=== PATIENT | male | born 1970 | race Caucasian/White ===

== ENCOUNTER 2016-04-13 09:38 | Emergency (ER) | payer BC ==
[2016-04-13 10:00] VITALS: BP 158/115
--- NOTE | 2016-04-13 10:25 | UC ---
Ear Complaint HPI - HPI Summary HPI Summary: complaint of left ear feeling "clogged up" had left ear pain intermittent for several weeks which has resolved can't hear well with left ear recent URI 3 weeks ago which resolved not taking any medications for symptoms - History of Current Complaint Chief Complaint: UCEar Stated Complaint: EAR COMPLAINT Time Seen by Provider: 04/13/16 10:19 Hx Obtained From: Patient - Allergies/Home Medications Allergies/Adverse Reactions: Allergies Allergy/AdvReac Type Severity Reaction Status Date / Time Lactose Intolerance (GI) Allergy GI Upset Verified 03/04/16 15:55 Home Medications: Home Medications Phenylephrine HCl (Oral) [Nasal Decongestant] 2 tab 04/13/16 [History] PMH/Surg Hx/FS Hx/Imm Hx Previously Healthy: Yes - Surgical History Surgical History: Yes Surgery Procedure, Year, and Place: right leg fx - pins in place - Family History Known Family History: Positive: Hypertension Negative: Cardiac Disease, Diabetes - Social History Occupation: Employed Full-time Lives: With Family Alcohol Use: Occasionally Substance Use Type: None Smoking Status (MU): Heavy Every Day Tobacco Smoker Type: Cigarettes Amount Used/How Often: 1 PPD Cessation Counseling: Patient Advised to Stop - Immunization History Most Recent Tetanus Shot: 07/08/13 Review of Systems Constitutional: Negative Skin: Negative Eyes: Negative ENT: Ear Ache Respiratory: Negative Cardiovascular: Negative Gastrointestinal: Negative Genitourinary: Negative Motor: Negative Neurovascular: Negative Musculoskeletal: Negative Neurological: Negative Psychological: Negative All Other Systems Reviewed And Are Negative: Yes Physical Exam Triage Information Reviewed: Yes Appearance: No Pain Distress, Well-Nourished Vital Signs: Initial Vital Signs Temp 98.6 F 04/13/16 09:58 Pulse 105 04/13/16 09:58 Resp 18 04/13/16 09:58 BP 158/115 04/13/16 09:58 Pulse Ox 95 04/13/16 09:58 Vital Signs Reviewed: Yes Eyes: Positive: Conjunctiva Clear ENT: Positive: Pharynx normal, TM bulging. Negative: Nasal congestion, TM red, Tonsillar swelling, Tonsillar exudate Neck: Positive: No Lymphadenopathy Respiratory: Positive: Lungs clear, Normal breath sounds, No respiratory distress Cardiovascular: Positive: No Murmur, Pulses Normal, Tachycardia Musculoskeletal: Positive: No Edema Neurological: Positive: Alert Psychological Exam: Normal Skin Exam: Normal Ear Complaint Course/Dx - Differential Dx/Diagnosis Differential Diagnosis/HQI/PQRI: Cerumen Impaction, Otitis Externa, Otitis Media , Other - eustachion tube dysfunction Provider Diagnoses: eustachion tibe dysfunction, elevated blood pressure Discharge - Discharge Plan Condition: Stable Disposition: HOME Prescriptions: Fluticasone NASAL SPRAY 50MCG* [Flonase NASAL SPRAY 50MCG*] 2 spray BOTH NARES DAILY #1 btl Patient Education Materials: Hypertension (ED), Eustachian Tube Dysfunction ( GEN) Referrals: No Primary Care Phys,NOPCP [Primary Care Provider] - [facility] [place] [facility] [Outside] Additional Instructions: Your blood pressure is elevated - please call the physician referral service to find a primary care provider and have your blood pressure evaluated. Start flonase as directed Increase fluids and rest Take acetaminophen or ibuprofen for fever or pain Please review your discharge instructions. If your symptoms do not improve please call your primary care provider or return to urgent care
== END 2016-04-13 10:40 | disposition home or self-care (01) ==
LOC: UCEAST 09:38
DX: H69.92 Unspecified Eustachian tube disorder, left ear (principal); R03.0 Elevated blood-pressure reading, without diagnosis of hypertension; F17.210 Nicotine dependence, cigarettes, uncomplicated
CPT/HCPCS: 99212; G0463

== ENCOUNTER 2016-08-24 16:53 | Emergency (ER) | payer BC ==
[2016-08-24 17:14] VITALS: BP 150/103
--- NOTE | 2016-08-24 18:47 | UC ---
Throat Pain/Nasal Daniel HPI - HPI Summary HPI Summary: 45 y/o male presents to the urgent care c/o of LF neck pain below the ear with sore throat since yesterday. Pt thinks is a lymph node that is painful at touch. Pt reports he had LEft ear pain about 2 months ago amd was Rx Flonase, symptoms resolved, but now he feel are returning. Pt denies fever, OSEGUERA, ear pain , SOB, chest pain, URI, N/V/D. - History of Current Complaint Chief Complaint: UCGeneralIllness Stated Complaint: NECK,JAW PAIN Time Seen by Provider: 08/24/16 18:34 Hx Obtained From: Patient Onset/Duration: Sudden Onset, Lasting Hours, Still Present Severity: Mild Pain Intensity: 3 Pain Scale Used: 0-10 Numeric Associated Signs & Symptoms: Positive: Dysphagia. Negative: Hoarseness, Sinus Discomfort, Nasal Discharge, Fever, Vomiting, Rash Related History: Seasonal Allergies - Epiglottits Risk Factors Epiglottis Risk Factors: Negative - Allergies/Home Medications Allergies/Adverse Reactions: Allergies Allergy/AdvReac Type Severity Reaction Status Date / Time Lactose Intolerance (GI) Allergy GI Upset Verified 03/04/16 15:55 PMH/Surg Hx/FS Hx/Imm Hx Previously Healthy: Yes Cardiovascular History: Hypertension - Surgical History Surgical History: Yes Surgery Procedure, Year, and Place: right leg fx - pins in place - Family History Known Family History: Positive: Cardiac Disease, Hypertension Negative: Diabetes - Social History Occupation: Employed Full-time Lives: With Family Alcohol Use: Occasionally Substance Use Type: None Smoking Status (MU): Heavy Every Day Tobacco Smoker Type: Cigarettes Amount Used/How Often: 1 PPD - Immunization History Most Recent Tetanus Shot: 07/08/13 Review of Systems Constitutional: Negative Skin: Negative Eyes: Negative ENT: Sore Throat, Other - LF lymph node pain Respiratory: Negative Cardiovascular: Negative Gastrointestinal: Negative Genitourinary: Negative Motor: Negative Neurovascular: Negative Musculoskeletal: Negative Neurological: Negative Psychological: Negative All Other Systems Reviewed And Are Negative: Yes Physical Exam Triage Information Reviewed: Yes Vital Signs: Initial Vital Signs Temp 98.5 F 08/24/16 17:10 Pulse 93 08/24/16 17:10 Resp 18 08/24/16 17:10 BP 150/103 08/24/16 17:10 Pulse Ox 99 08/24/16 17:10 - Additional Comments Physical examination: Vitral signs reviewed General: awake and alert, not toxic appearing. Skin: [place], warm and dry, no evidence of atopic dermatitis, psoriasis, seborrhea. HEENT: -Head: atraumatic, nontender; no scalp dermatitis. -Eyes: sclera and conjunctiva clear, PERRLA, EOMI -Ears: no pre- or postauricular lymphadenopathy or erythema; canals are clear, no erythema, edema, exudates. No cerumen impaction. RT TM normal w/out bulging or retraction. Good light reflex. Left TM dullwith mild erythema, no light reflex, No fluid level, vesicles, or bullae. No perforation. -Nose/Face: no rhinorrhea, congestion; no frontal or maxillary sinus tenderness to palpation. -Mouth/Throat: Mucous membrane moist, posterior pharynx with erythema and no exudate exudates in the left side. B/L tonsils with mild erythema and swollen. No exudate. Neck: supple, FROM, mild tendernes on palpation over left cervical lymphoadenopathy, no meningismus. Chest: CTA Abd: soft, Bowel sounds active, Nontender. Back: no spinal or CVAT Neuro: A&O x4, GCS 15, no focal neuro deficits, normal behavior for age. Throat Pain/Nasal Course/Dx - Course Course Of Treatment: Sore throat with lymph node pain x 2 days: Hx obtained. PE abnormal finding:-Ears: no pre- or postauricular lymphadenopathy or erythema ; canals are clear, no erythema, edema, exudates. No cerumen impaction. RT TM normal w/out bulging or retraction. Good light reflex. Left TM dull with mild erythema, no light reflex, No fluid level, vesicles, or bullae. No perforation. Posite left cervical lymphadenopathy. Rapid strep ordered, result: negative. Most likely Acute left otitis media with cervical lymphadenopathy. Pt w/ Hx of ear pain. Pt Rx Augmentin 875/125mg PO BID x 10 days. and Ibuprofen 800mgPO prn to alleviate symptoms. Pt instructed on medications and advised to return to urgent care of f/u with his PCO if symptoms do not improve or worsen. Pt understooda and agreed. - Differential Dx/Diagnosis Differential Diagnosis/HQI/PQRI: Laryngitis, Otitis Media, Peritonsillar Abscess , Pharyngitis, URI Provider Diagnoses: Acute Left otitis media, acute pharyngitis Discharge - Discharge Plan Condition: Stable Disposition: HOME Prescriptions: Amoxicillin/Clavulanate TAB* [Augmentin TAB 875*] 875 mg PO BID #20 tab Ibuprofen TAB* [Motrin TAB* 800 MG] 800 mg PO Q6H #20 tab Patient Education Materials: Otitis Media (ED), Lymphangitis (ED) Referrals: [facility] [place] [facility] [Outside] No Primary Care Phys,NOPCP [Primary Care Provider] - Additional Instructions: Please take medications as instructed and finish the full course of treatment to avoid recurrent infection. If you do not improve or if symptoms worsen after the course of antibiotics, you should either follow up with your PCP or return to the urgent care for further evaluation and treatment.
== END 2016-08-24 19:40 | disposition home or self-care (01) ==
LOC: UCEAST 16:53
DX: H66.92 Otitis media, unspecified, left ear (principal); J02.9 Acute pharyngitis, unspecified; F17.210 Nicotine dependence, cigarettes, uncomplicated; I10 Essential (primary) hypertension
CPT/HCPCS: 87651; 99212; G0463

== ENCOUNTER 2016-11-11 13:03 | Emergency (ER) | payer BC ==
[2016-11-11 13:52] VITALS: BP 145/96
--- NOTE | 2016-11-11 16:02 | UC ---
Yasemin Steele SooYoung, scribed for Iam Main MD on 11/11/16 at 1445 . Allergic Reaction HPI - HPI Summary HPI Summary: A 46 y/o M presents to [facility] [place] with c/o allergic reaction after being stung by a wasp on his R wrist yesterday. This AM, he noticed swelling of his RUE from hand to bicep. RUE is also erythematous, pruritic, and warm to touch. Denies SOB , throat tightness. He used cold water on the sting yesterday, but it didn't alleviate sx. He states being stung 14x two weeks ago. R-hand dominant. - History of Current Complaint Chief Complaint: UCAllergicReaction Stated Complaint: BEE STING Hx Obtained From: Patient Onset/Duration: Sudden Onset, Lasting Hours - onset yesterday, Still Present Severity Initially: Moderate Severity Currently: Mild Pain Intensity: 2 Pain Scale Used: 0-10 Numeric Location: Discrete @ - R wrist, RUE Character: Swelling, Pruritus Associated Signs And Symptoms: Negative: Difficulty Breathing - neg: SOB, Throat Tightening - Allergies/Home Medications Allergies/Adverse Reactions: Allergies Allergy/AdvReac Type Severity Reaction Status Date / Time Lactose Intolerance (GI) Allergy GI Upset Verified 11/11/16 13:47 PMH/Surg Hx/FS Hx/Imm Hx Previously Healthy: Yes Cardiovascular History: Other Other Cardiovascular History: neg CHF, HTN. Respiratory History: Other Other Respiratory History: neg: asthma. - Surgical History Surgical History: Yes Surgery Procedure, Year, and Place: right leg fx - pins in place - Family History Known Family History: Positive: Cardiac Disease, Hypertension Negative: Diabetes - Social History Occupation: Employed Full-time Lives: Alone Alcohol Use: Occasionally Substance Use Type: None Smoking Status (MU): Heavy Every Day Tobacco Smoker Type: Cigarettes Amount Used/How Often: 1 PPD Length of Time of Smoking/Using Tobacco: 15+ YEARS - Immunization History Most Recent Tetanus Shot: 07/08/13 Review of Systems Skin: Other - pos: swelling, pruritus, erythema to RUE ENT: Other - neg: throat tightening Respiratory: Negative All Other Systems Reviewed And Are Negative: Yes Physical Exam Triage Information Reviewed: Yes Vital Signs: Initial Vital Signs Temp 97.9 F 11/11/16 13:48 Pulse 115 11/11/16 13:48 Resp 16 11/11/16 13:48 BP 145/96 11/11/16 13:48 Pulse Ox 99 11/11/16 13:48 Vital Signs Reviewed: Yes - Additional Comments The patient is well-nourished in no acute distress and in no acute pain. The skin is warm and dry and skin color reflects adequate perfusion. HEENT: The head is normocephalic and atraumatic. The pupils are equal and reactive. The conjunctivae are clear and without drainage. Nares are patent and without drainage. Mouth reveals moist mucous membranes and the throat is without erythema and exudate. The external ears are intact. Neck is supple with full range of motion and non-tender. There are no carotid bruits. There is no neck vein distension. Respiratory: Chest is non-tender. Lungs are clear to auscultation and breath sounds are symmetrical and equal. Cardiovascular: Hear is regular rate and rhythm. There is no murmur or rub auscultated. There is no peripheral edema and pulses are symmetrical and equal. Abdomen: The abdomen is soft and non-tender. There are normal bowel sounds heard in all four quadrants and there is no organomegaly palpated. Musculoskeletal: There is no back pain noted. Extremities are non-tender with full range of motion. There is good capillary refill. There is no calf tenderness elicited. Localized RUE erythema from wrist to mid-humerous mostly on volar side. There is swelling of elbow, hand and thumb. Area is hot and warm to touch. FROM distally. No lymphadenopathy noted, no adenopathy under the axilla. Neurological: Patient is alert and oriented to person, place and time. The patient has symmetrical motor strength in all four extremities. Cranial nerves are grossly intact. Deep tendon reflexes are symmetrical and equal in all four extremities. Psychiatric: The patient has an appropriate affect and does not exhibit any anxiety or depression. Allergic Reaction Course/Dx - Course Course Of Treatment: Medications reviewed this visit. Hypertensive BP reading (> =140/90); patient referred to PCP within 1 day-4 weeks for follow-up. - Differential Dx/Diagnosis Differential Diagnosis/HQI/PQRI: Local Allergic Reaction Provider Diagnoses: 1. Localized allergic reaction to bee sting right upper extremity. 2. Elevated blood pressure without diagnosis of hypertension Discharge - Discharge Plan Condition: Stable Disposition: HOME Prescriptions: Famotidine TAB 40 MG(NF) [Pepcid TAB 40 MG(NF)] 40 mg PO DAILY #20 tab diPHENhydraMINE PO* [Benadryl PO 50 MG CAP*] 50 mg PO Q6H PRN #30 cap PRN Reason: itching predniSONE TAB* [Deltasone TAB*] 10 mg PO DAILY #38 tab Patient Education Materials: Famotidine (By mouth), Prednisone (By mouth), Diphenhydramine (By mouth), General Allergic Reaction (ED) Referrals: No Primary Care Phys,NOPCP [Primary Care Provider] - [facility] [place] [facility] [Outside] - 3 Days (Also, follow-up in 1 day to 4 weeks for further blood pressure evaluation. ) Additional Instructions: Continue using ice as needed. Take the medications as prescribed. Follow up with your primary care provider in the next 2 days. Your blood pressure reading today was 145/96, which is HYPERTENSIVE. Establish with a new primary care provider and follow-up within 4 weeks for blood pressure readings and further evaluation. If you cant find a provider, try to check your blood pressure on your own and see if its above 120/80. If so, follow up for further evaluation and treatment. The documentation as recorded by the Yasemin sanchez SooYoung accurately reflects the service I personally performed and the decisions made by me, Iam Main MD.
== END 2016-11-11 14:55 | disposition home or self-care (01) ==
LOC: UCEAST 13:03
DX: T63.441A Toxic effect of venom of bees, accidental (unintentional), initial encounter (principal); M79.89 Other specified soft tissue disorders; Y92.9 Unspecified place or not applicable; R03.0 Elevated blood-pressure reading, without diagnosis of hypertension; F17.210 Nicotine dependence, cigarettes, uncomplicated
CPT/HCPCS: 99212; G0463

== ENCOUNTER 2017-07-04 07:09 | Emergency (ER) | payer BC ==
[2017-07-04 07:22] VITALS: BP 151/96
--- NOTE | 2017-07-04 07:47 | UC ---
Skin Complaint HPI - HPI Summary HPI Summary: ONSET OF MILD EDEMA OF THE MID FACE YESTERDAY. PT STATES HE HAD BEEN SCRATCING A A PIMPLE UNDER HIS NOSE FOR A COUPLE OF DAYS AND NOTICED THE SWELLING YESTERDAY AFTERNOON. THEN HE WENT OUT AND ATE SEAFOOD FOR DINNER - STATES HE HAS A POSSIBLE SHELLFISH ALLERGY - AND THE SWELLING WORSENED. NO RESPIRATORY INVOLVEMENT, FEVER, TONGUE/LIP SWELLING. - History of Current Complaint Chief Complaint: UCSkin Time Seen by Provider: 07/04/17 07:25 Stated Complaint: SWOLLEN FACE Hx Obtained From: Patient Onset/Duration: Gradual Onset, Lasting Days, Still Present Timing: Constant Onset Severity: Moderate Current Severity: Moderate Pain Intensity: 0 Pain Scale Used: 0-10 Numeric Location: Face Character: Swelling, Pain, Redness Aggravating Factor(s): Touch Alleviating Factor(s): Nothing Associated Signs & Symptoms: Positive: Tenderness. Negative: Nausea, Fever, Throat Tightening Related History: Possible Reaction to: Food - Allergy/Home Medications Allergies/Adverse Reactions: Allergies Allergy/AdvReac Type Severity Reaction Status Date / Time lactose intolerant Allergy GI Upset Uncoded 07/04/17 07:24 Home Medications: Home Medications Pseudoephedrine HCL ER TAB* [Sudafed 12 Hour*] 120 mg PO BID PRN 07/04/17 [ History Confirmed 07/04/17] Review of Systems Constitutional: Negative Skin: Other - FACIAL EDEMA ENT: Negative Respiratory: Negative Cardiovascular: Negative Gastrointestinal: Negative All Other Systems Reviewed And Are Negative: Yes PMH/Surg Hx/FS Hx/Imm Hx Cardiovascular History: Hypertension - Surgical History Surgical History: Yes Surgery Procedure, Year, and Place: right leg fx - pins in place - Family History Known Family History: Positive: Cardiac Disease, Hypertension Negative: Diabetes - Social History Alcohol Use: Occasionally Substance Use Type: None Smoking Status (MU): Heavy Every Day Tobacco Smoker Type: Cigarettes Amount Used/How Often: 1/2 PPD Length of Time of Smoking/Using Tobacco: 15+ YEARS - Immunization History Most Recent Tetanus Shot: 07/08/13 Physical Exam Triage Information Reviewed: Yes Appearance: Well-Appearing, No Pain Distress, Well-Nourished Vital Signs: Initial Vital Signs Temp 98.8 F 07/04/17 07:17 Pulse 96 07/04/17 07:17 Resp 16 07/04/17 07:17 BP 151/96 07/04/17 07:17 Pulse Ox 100 07/04/17 07:17 Vital Signs Reviewed: Yes Eyes: Positive: Conjunctiva Clear ENT: Positive: Hearing grossly normal, Pharynx normal, TMs normal - FLUID BEHIND RIGHT TM Neck: Positive: Supple, Nontender, No Lymphadenopathy Respiratory Exam: Normal Cardiovascular Exam: Normal Abdomen Description: Positive: Soft Musculoskeletal: Positive: ROM Intact Neurological: Positive: Alert Psychological: Positive: Age Appropriate Behavior Skin: Positive: rashes, Other - MILD EDEMA AND ERYTHEMA OF MID FACE WITH SLIGHT FLATTENING OF NASOLABIAL FOLDS. MILDLY TENDER Course/Dx - Diagnoses Provider Diagnoses: 1. CELLULITIS. 2. ALLERGIC REACTION Discharge - Sign-Out/Discharge Documenting (check all that apply): Discharge/Admit/Transfer - Discharge Plan Condition: Stable Disposition: HOME Prescriptions: Cephalexin CAP* [Keflex 500 CAP*] 1,000 mg PO BID #28 cap predniSONE TAB* [Deltasone TAB*] 50 mg PO DAILY #5 tab Patient Education Materials: Cellulitis (ED), Food Allergy (ED) Referrals: No Primary Care Phys,NOPCP [Primary Care Provider] - Additional Instructions: YOU MAY HAVE BOTH A SKIN INFECTION AND AN ALLERGIC REACTION TO THE SHELLFISH. WILL COVER YOU FOR BOTH. TAKE THE ANTIBIOTICS FOR THE FULL 7 DAYS AND COVER FOR ALLERGY WITH PREDNISONE AND AN OTC ANTIHISTAMINE DAILY (CLARITIN (LORATADINE), ZYRTEC (CETIRIZINE) OR DONNY (FEXOFENADINE) IN THE MORNING, 25-50MG BENADRYL AT NIGHT). KEEP COOL, CLEAN AND DRY. GO TO THE [facility] [place] ED WITHOUT FAIL IF YOU DEVELOP ANY RESPIRATORY INVOLVEMENT, TONGUE /LIP SWELLING OR ANY OTHER CONCERNING SYMPTOMS. YOUR BLOOD PRESSURE WAS ELEVATED TODAY (151/96). THIS MAY BE DUE TO YOUR ACUTE CONDITION. MONITOR AND FOLLOW-UP WITH YOUR PCP WITHIN 4 WEEKS IF IT HAS NOT RETURNED TO NORMAL. CALL THE NUMBER BELOW FOR ASSISTANCE IN ESTABLISHING WITH A PCP An additional resource available to assist in finding the appropriate physician for your health care needs is the [facility] ([facility]). You may contact them by calling [phone]. - Billing Disposition and Condition Condition: STABLE Disposition: HOME
== END 2017-07-04 07:45 | disposition home or self-care (01) ==
LOC: UCEAST 07:09
DX: L03.211 Cellulitis of face (principal); T78.40XA Allergy, unspecified, initial encounter; F17.210 Nicotine dependence, cigarettes, uncomplicated
CPT/HCPCS: 99212; G0463

== ENCOUNTER 2017-07-05 07:02 | Emergency (ER) | payer BC ==
[2017-07-05 07:16] VITALS: BP 178/114
[2017-07-05] MEDS ORDERED: cefTRIAXone VIAL(*) 1,000 MG VIAL IM ONE (07:29)
[2017-07-05] MEDS ORDERED: Lidocaine 1% MPF* 2 ML VIAL INJ ONE (07:30)
--- NOTE | 2017-07-05 08:07 | ED ---
Skin Complaint - HPI Summary HPI Summary: 46 yo WM was here yesterday due to increased left facial swelling from infected left nare, is already on Keflex 1000mg BID and Prednisone 50mg QD and ate calamari 2 days ago. Denies CP, SOB or wheezing - History of Current Complaint Chief Complaint: UCGeneralIllness Stated Complaint: SWOLLEN FACE Hx Obtained From: Patient Skin Exposure Onset/Duration: Days Ago Onset Severity: Moderate Current Severity: Moderate Pain Intensity: 4 - Allergy/Home Medications Allergies/Adverse Reactions: Allergies Allergy/AdvReac Type Severity Reaction Status Date / Time shellfish derived Allergy Swelling Verified 07/05/17 07:18 lactose intolerant Allergy GI Upset Uncoded 07/05/17 07:09 PMH/Surg Hx/FS Hx/Imm Hx Previously Healthy: Yes Endocrine/Hematology History: Denies: Hx Diabetes, Hx Thyroid Disease Cardiovascular History: Reports: Hx Hypertension Respiratory History: Denies: Hx Asthma, Hx Chronic Obstructive Pulmonary Disease (COPD) GI History: Denies: Hx Ulcer - Surgical History Surgery Procedure, Year, and Place: right leg fx - pins in place Infectious Disease History: No Infectious Disease History: Denies: Hx Clostridium Difficile, Hx Hepatitis, Hx Human Immunodeficiency Virus (HIV), Hx of Known/Suspected MRSA, Hx Shingles, Hx Tuberculosis, Hx Known/ Suspected VRE, Hx Known/Suspected VRSA, History Other Infectious Disease, Traveled Outside the [place] in Last 30 Days - Family History Known Family History: Positive: Cardiac Disease, Hypertension Negative: Diabetes - Social History Alcohol Use: Occasionally Substance Use Type: Reports: None Smoking Status (MU): Heavy Every Day Tobacco Smoker Type: Cigarettes Amount Used/How Often: 1/2 PPD Length of Time of Smoking/Using Tobacco: 15+ YEARS Review of Systems Constitutional: Negative Eyes: Negative ENT: Negative Cardiovascular: Negative Respiratory: Negative Gastrointestinal: Negative Genitourinary: Negative Musculoskeletal: Negative Skin: Other - left facial swelling Psychological: Normal All Other Systems Reviewed And Are Negative: Yes Physical Exam Triage Information Reviewed: Yes Vital Signs On Initial Exam: Initial Vitals Temp Pulse Resp BP Pulse Ox 36.6 C 98 18 178/114 99 07/05/17 07:10 07/05/17 07:10 07/05/17 07:10 07/05/17 07:10 07/05/17 07:10 Vital Signs Reviewed: Yes Appearance: Positive: Well-Appearing Skin: Positive: Warm, Tender - around left nare, red, warm on left narre, left upper lip, mild swelling on left face, Soft Eyes: Positive: Normal ENT: Positive: Normal ENT inspection, Pharynx normal Neck: Positive: Supple Respiratory/Lung Sounds: Positive: Clear to Auscultation. Negative: Rales, Rhonchi, Stridor, Wheezes, Unable to speak in full sentences Cardiovascular: Positive: Normal Abdomen Description: Positive: Nontender Musculoskeletal: Positive: Normal Neurological: Positive: Normal Diagnostics - Vital Signs Vital Signs Temp Pulse Resp BP Pulse Ox 07/05/17 07:10 36.6 C 98 18 178/114 99 - Laboratory Lab Statement: Any lab studies that have been ordered have been reviewed, and results considered in the medical decision making process. Course/Dx - Course Course Of Treatment: pt took 500mg BID instead of instructed 1000mg BID. Advised to take as directed- 1000mg BID or 500mg QID. Continue with prednisone for potential allergic reaction to calamari - Differential Diagnoses - Skin Complaint Differential Diagnoses: Allergic Reaction, Cellulitis - Diagnoses Provider Diagnoses: Facial cellulitis Discharge - Sign-Out/Discharge Documenting (check all that apply): Discharge/Admit/Transfer - Discharge Plan Condition: Stable Disposition: HOME Patient Education Materials: Cellulitis (ED) Referrals: No Primary Care Phys,NOPCP [Primary Care Provider] - Additional Instructions: Please take TWO capsules of antibiotics every 12 hrs until finished, pls go to ER if sx worsen - Billing Disposition and Condition Condition: STABLE Disposition: HOME
== END 2017-07-05 08:05 | disposition home or self-care (01) ==
LOC: UCEAST 07:02
DX: L03.211 Cellulitis of face (principal); F17.210 Nicotine dependence, cigarettes, uncomplicated
CPT/HCPCS: 96372; 99211; G0463; J0696

== ENCOUNTER 2018-04-13 09:58 | Emergency (ER) | payer BC ==
[2018-04-13 10:14] VITALS: BP 146/93
--- NOTE | 2018-04-13 15:08 | UC ---
Skin Complaint HPI - HPI Summary HPI Summary: 4 DAYS AGO NOTICED WHAT HE THOUGHT WAS A BUG BITE ON THE BACK OF HIS RIGHT FOREARM. HE PICKED AT IT AND SINCE THEN IT HAS GOTTEN BIGGER, MORE RED AND TENDER. HE SQUEEZED SOME PUS OUT OF IT YESTERDAY. NO FEVER. DENIES DRUG USE. - History of Current Complaint Chief Complaint: UCSkin Time Seen by Provider: 04/13/18 10:48 Stated Complaint: ARM COMPLAINT Hx Obtained From: Patient Onset/Duration: Gradual Onset, Lasting Days, Still Present Timing: Constant Onset Severity: Mild Current Severity: Moderate Pain Intensity: 1 Pain Scale Used: 0-10 Numeric Location: Discrete - BACK OF RIGHT FOREARM Character: Pain, Redness, Raised Aggravating Factor(s): Touch Alleviating Factor(s): Nothing Associated Signs & Symptoms: Positive: Drainage, Tenderness. Negative: Fever - Allergy/Home Medications Allergies/Adverse Reactions: Allergies Allergy/AdvReac Type Severity Reaction Status Date / Time shellfish derived Allergy Swelling Verified 04/13/18 10:14 lactose intolerant Allergy GI Upset Uncoded 04/13/18 10:14 PMH/Surg Hx/FS Hx/Imm Hx Cardiovascular History: Hypertension - Surgical History Surgical History: Yes Surgery Procedure, Year, and Place: right leg fx - pins in place - Family History Known Family History: Positive: Cardiac Disease, Hypertension Negative: Diabetes - Social History Alcohol Use: Occasionally Substance Use Type: None Smoking Status (MU): Heavy Every Day Tobacco Smoker Type: Cigarettes Amount Used/How Often: 1/2 PPD Length of Time of Smoking/Using Tobacco: 15+ YEARS - Immunization History Most Recent Tetanus Shot: 07/08/13 Review of Systems All Other Systems Reviewed And Are Negative: Yes Constitutional: Positive: Negative Skin: Positive: Other - ABSCESS RIGHT FOREARM Respiratory: Positive: Negative Cardiovascular: Positive: Negative Gastrointestinal: Positive: Negative Musculoskeletal: Positive: Negative Physical Exam Triage Information Reviewed: Yes Appearance: Well-Appearing, No Pain Distress, Well-Nourished Vital Signs: Initial Vital Signs Temp 98.4 F 04/13/18 10:11 Pulse 98 04/13/18 10:11 Resp 18 04/13/18 10:11 BP 146/93 04/13/18 10:11 Pulse Ox 100 04/13/18 10:11 Vital Signs Reviewed: Yes Eyes: Positive: Conjunctiva Clear ENT: Positive: Hearing grossly normal Neck: Positive: Supple Respiratory: Positive: No respiratory distress, No accessory muscle use Cardiovascular: Positive: Pulses Normal Abdomen Description: Positive: Soft Musculoskeletal: Positive: No Edema Neurological: Positive: Alert Psychological: Positive: Age Appropriate Behavior Skin: Positive: Other - 5CM DIAMETER RAISED, TENDER ABSCESS BACK OF RIGHT FOREARM. INDURATED. NO CLEAR FLUCTUANCE. Course/Dx - Diagnoses Provider Diagnosis: Abscess of right forearm Discharge - Sign-Out/Discharge Documenting (check all that apply): Patient Departure All imaging exams completed and their final reports reviewed: No Studies - Discharge Plan Condition: Stable Disposition: HOME Prescriptions: Sulfamethox/Trimethoprim DS* [Bactrim DS 800/160 TAB*] 1 tab PO BID #20 tab Patient Education Materials: Abscess (ED) Referrals: No Primary Care Phys,NOPCP [Primary Care Provider] - Additional Instructions: TAKE THE ANTIBIOTICS FOR THE FULL COURSE. WARM/HOT COMPRESSES/SOAKS AT LEAST 4 TIMES DAILY SEEK FOLLOW-UP IF YOU DEVELOP CONTINUED SPREADING REDNESS OF THE SKIN, PERSISTENT PURULENT DRAINAGE, FEVER, INCREASED PAIN OR ANY OTHER CONCERNING SYMPTOMS. - Billing Disposition and Condition Condition: STABLE Disposition: Home
== END 2018-04-13 11:40 | disposition home or self-care (01) ==
LOC: UCEAST 09:58
DX: L02.413 Cutaneous abscess of right upper limb (principal); F17.210 Nicotine dependence, cigarettes, uncomplicated; I10 Essential (primary) hypertension; Z88.8 Allergy status to other drugs, medicaments and biological substances; Z91.013 Allergy to seafood
CPT/HCPCS: 99212; G0463

== ENCOUNTER 2018-07-18 09:21 | Emergency (ER) | payer BC ==
[2018-07-18 09:33] VITALS: BP 158/104
--- NOTE | 2018-07-18 10:33 | UC ---
Hand/Wrist HPI - HPI Summary HPI Summary: 47 y/o male presents to the urgent care c/o RT thumb redness and swelling s/p insect bite. Pt reports he has similar insect bites about 2 months ago and they get infected very fast. He was seen here at the clinic and Rx an Antibiotic. He requests the same antibiotic. 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 Pt drained some yellowish pus from the insect bite yesterday. Pain is 6/10 and he has applied some topical OTC organic oils. Pt can move thumb w/o any problem. Pt denies Hx of MRSA, fever, numbness or tingling sensation over the thumb. denies Hx of previous injury, SOB, chest pain, abdominal, N/V/D, or Hx of drug abuse. - History Of Current Complaint Chief Complaint: Judi Stated Complaint: RT THUMB INJURY Time Seen by Provider: 07/18/18 10:09 Hx Obtained From: Patient Onset/Duration: Gradual Onset, Lasting Days - 2 days, Still Present Severity Initially: Mild Severity Currently: Moderate Pain Intensity: 6 Pain Scale Used: 0-10 Numeric Character Of Pain: Dull, Aching Aggravating Factor(s): Other - touch Alleviating Factor(s): Rest, OTC Meds Associated Signs And Symptoms: Positive: Swelling, Redness. Negative: Bruising , Fever, Weakness, Numbness/Tingling, Other Related History: Similar Episode/Dx As - cellulitis - Allergies/Home Medications Allergies/Adverse Reactions: Allergies Allergy/AdvReac Type Severity Reaction Status Date / Time shellfish derived Allergy Swelling Verified 07/18/18 09:33 lactose intolerant Allergy GI Upset Uncoded 07/18/18 09:33 PMH/Surg Hx/FS Hx/Imm Hx Previously Healthy: Yes Cardiovascular History: Hypertension - Surgical History Surgical History: Yes Surgery Procedure, Year, and Place: right leg fx - pins in place - Family History Known Family History: Positive: Cardiac Disease, Hypertension Negative: Diabetes - Social History Occupation: Employed Full-time Lives: With Family Alcohol Use: Occasionally Substance Use Type: None Smoking Status (MU): Heavy Every Day Tobacco Smoker Type: Cigarettes Amount Used/How Often: 1/2 PPD Length of Time of Smoking/Using Tobacco: 15+ YEARS - Immunization History Most Recent Tetanus Shot: 07/08/13 Review of Systems All Other Systems Reviewed And Are Negative: Yes Constitutional: Positive: Negative Skin: Positive: Rash - Rt thumb pain, swelling and redness w/ yellowish drainage s/p possible insect bite Eyes: Positive: Negative ENT: Positive: Negative Respiratory: Positive: Negative Cardiovascular: Positive: Negative Gastrointestinal: Positive: Negative Genitourinary: Positive: Negative Motor: Positive: Negative Neurovascular: Positive: Negative Musculoskeletal: Positive: Other: - Rt thumb pain Neurological: Positive: Negative Psychological: Positive: Negative Is Patient Immunocompromised?: No Physical Exam - Summary Physical Exam Summary: Vital Signs Reviewed: Yes General: well appearing, well nourished male in no acute apparent pain distress , sitting comfortably on examining table Eye Exam: Normal Eyes: Positive: Conjunctiva Clear - PERRLA< EOMI, fundi grossly normal ENT: Positive: Normal ENT inspection, Hearing grossly normal, Pharynx normal, TMs normal Neck: Positive: Supple, Nontender, No Lymphadenopathy Respiratory: Positive: Chest non-tender, Lungs clear, Normal breath sounds, No respiratory distress Cardiovascular: Positive: RRR, No Murmur, Pulses Normal, Brisk Capillary Refill Abdomen Description: Positive: Nontender, No Organomegaly, Soft. Negative: CVA Tenderness (R), CVA Tenderness (L) Bowel Sounds: Positive: Present Musculoskeletal: Positive: Strength Intact, ROM Intact, No Edema Neurological: Positive: Alert, Muscle Tone Normal Psychological Exam: Normal Skin: Positive: Positive erythematous patch w/ indistinct borders w/ a skin break in the medial aspect , warm and tender to palpation around the distal RT thumb , mild yellowish drainage observed, mild soft tissue swelling. FROM of Rt thumb, pulses WNL, capillary refill brisk, sensation WNL. Triage Information Reviewed: Yes Vital Signs: Initial Vital Signs Temp 98 F 07/18/18 09:30 Pulse 97 07/18/18 09:30 Resp 16 07/18/18 09:30 BP 158/104 07/18/18 09:30 Pulse Ox 100 07/18/18 09:30 Hand/Wrist Course/Dx - Course Course Of Treatment: 47 y/o male presents to the urgent care c/o RT thumb redness and swelling s/p insect bite. Pt reports he has similar insect bites about 2 months ago and they get infected very fast. He was seen here at the clinic and Rx an Antibiotic. He requests the same antibiotic. 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 Pt drained some yellowish pus from the insect bite yesterday. Pain is 6/10 and he has applied some topical OTC organic oils. Pt can move thumb w/o any problem. Pt denies Hx of MRSA, fever, numbness or tingling sensation over the thumb. denies Hx of previous injury, SOB, chest pain, abdominal, N/V/D, or Hx of drug abuse.Hx obtained. Pt w/ Positive erythematous patch w/ indistinct borders w/ a skin break in the medial aspect , warm and tender to palpation around the distal RT thumb , mild yellowish drainage observed, mild soft tissue swelling. FROM of Rt thumb on examination. Dx Cellulitis of RT thumb s/p possible insect bite. Wound culture sent taken from Rt thumb skin break and sent to lab to r/o MRSA. Pt Rx Bactrim PO, Domeboro pkts, and topical Bacitracin ointment. Pt Advised if rash doubles in size despite taking antibiotic and if He develops fever to go to the ER for further treatment. Pt BP today elevated w/o Hx of HTN. Pt advised to decrease salt in diet and monitor BP at home if it continues to be elevated to f/u with PCP for further management. d/c instructions explained. Pt understood and agreed w/ plan of care. - Differential Dx/Diagnosis Differential Diagnosis/HQI/PQRI: Abrasion, Cellulitis, Contusion, Fracture, Paronychia, Sprain, Strain, Subungual Hematoma Provider Diagnosis: Cellulitis of right thumb, Uncontrolled hypertension Discharge - Sign-Out/Discharge Documenting (check all that apply): Patient Departure - D/C home All imaging exams completed and their final reports reviewed: No Studies - Discharge Plan Condition: Stable Disposition: HOME Prescriptions: Aluminum Sulf/Ca Acetate PRASHANTH* [Domeboro PRASHANTH*] 1 applic TOPICAL DAILY #1 packet Bacitracin OINTMENT* 1 applic TOPICAL BID #1 tube Sulfamethox/Trimethoprim DS* [Bactrim DS 800/160 TAB*] 1 tab PO BID #20 tab Patient Education Materials: Cellulitis (ED), Low-Sodium Diet (ED) Referrals: [facility] [place] [facility] [Outside] - 3 Days Additional Instructions: 1-Please take full course of Antibiotic. Soak your thumb w/ the Domeboro packets as directed, then apply Bacitracin oint as directed and keep area clean and dry w/ sterile dressing 2- If redness and swelling doubles in size despite taking antibiotic and fever develops please go to the ER immediately. 3-Avoid too much flexing your thumb. 4-Please F/u with your PCP in 3 days if not improvement of symptoms for further evaluation and treatment. 5-Your BP is elevated today. Please take your BP medications and decrease salt in your diet, monitor BP and if it continues to be elevated please f/u with your PCP for further management. If you develop chest pain, dizziness, visual disturbances, SOB, or severe OSEGUERA please go immediately to the ER for further management 6- Wound culture was sent to the lab to r/o any abnormality. you will be notified of any abnormal result. - Billing Disposition and Condition Condition: STABLE Disposition: Home
== END 2018-07-18 11:02 | disposition home or self-care (01) ==
LOC: UCEAST 09:21
DX: L03.011 Cellulitis of right finger (principal); I10 Essential (primary) hypertension; Z91.011 Allergy to milk products; Z91.013 Allergy to seafood; F17.210 Nicotine dependence, cigarettes, uncomplicated
CPT/HCPCS: 87070; 87205; 99212; G0463

== ENCOUNTER 2018-11-09 14:14 | Emergency (ER) | payer BC ==
[2018-11-09 14:54] VITALS: BP 151/96
--- NOTE | 2018-11-09 15:32 | UC ---
UC General HPI - HPI Summary HPI Summary: 48 y/o male presents to the urgent care c/o of being stress lately. This morning when he woke up he felt very tired and he called in to work and his boss told him he needs to have documentation for a sick day before a Holiday. He has noticed his BP has been high lately. However he hasn't been able to see his PCP. Pt denies OSEGUERA, dizziness, fever, SOB, ches tpain, abdominal pain, N/V/ D. - History of Current Complaint Chief Complaint: UCGU Stated Complaint: PERSONAL Time Seen by Provider: 11/09/18 15:30 Hx Obtained From: Patient Onset/Duration: Gradual Onset - morning w/ elevated BP and stress ffrom work, Still Present Timing: Constant Onset Severity: Mild Current Severity: Mild Pain Intensity: 0 Associated Signs & Symptoms: Negative: Abdominal Pain, Back Pain, Confusion, Chest Pain, Dizziness, Diarrhea, Dysuria, Decreased Oral Intake, Headache, Nausea, SOB, Weakness - Allergy/Home Medications Allergies/Adverse Reactions: Allergies Allergy/AdvReac Type Severity Reaction Status Date / Time shellfish derived Allergy Swelling Verified 11/09/18 14:53 lactose intolerant Allergy GI Upset Uncoded 11/09/18 14:53 Home Medications: Home Medications NK [No Home Medications Reported] 11/09/18 [History Confirmed 11/09/18] PMH/Surg Hx/FS Hx/Imm Hx Previously Healthy: Yes - Pt denies PMHX - Surgical History Surgical History: Yes Surgery Procedure, Year, and Place: right leg fx - pins in place - Family History Known Family History: Positive: Cardiac Disease, Hypertension Negative: Diabetes - Social History Occupation: Employed Full-time Lives: With Family Alcohol Use: Occasionally Substance Use Type: None Smoking Status (MU): Heavy Every Day Tobacco Smoker Type: Cigarettes Amount Used/How Often: 1/2 PPD Length of Time of Smoking/Using Tobacco: 15+ YEARS - Immunization History Most Recent Tetanus Shot: 07/08/13 Review of Systems All Other Systems Reviewed And Are Negative: Yes Constitutional: Positive: Negative Skin: Positive: Negative Eyes: Positive: Negative ENT: Positive: Negative Respiratory: Positive: Negative Cardiovascular: Positive: Negative Gastrointestinal: Positive: Negative Genitourinary: Positive: Negative Motor: Positive: Negative Neurovascular: Positive: Negative Musculoskeletal: Positive: Negative Neurological: Positive: Negative Psychological: Positive: Other - stress Is Patient Immunocompromised?: Yes Physical Exam - Summary Physical Exam Summary: VITAL SIGNS: Reviewed. GENERAL: Patient is a well developed and nourished male who is sitting comfortably in the examining table. Patient is not in any acute respiratory distress. HEAD AND FACE: No signs of trauma. No ecchymosis, hematomas or skull depressions. No sinus tenderness. EYES: PERRLA, EOMI x 2, No injected conjunctiva, no nystagmus. No photophobia. EARS: Hearing grossly intact. Ear canals and tympanic membranes are within normal limits. MOUTH: Positive pharynx with mild erythema, no exudates, No B/L tonsillar enlargement , no exudate. Uvula in midline. edematous nasal mucosa w/ clear nasal discharge, clear PND NECK: Supple, trachea is midline, Positive anterior cervical lymphadenopathy, no JVD, no carotid bruit, no c-spine tenderness, neck with full ROM. No meningeal signs, no Kernig's or brudzinskis signs. CHEST: Symmetric, no tenderness at palpation LUNGS: Clear to auscultation bilaterally. No wheezing or crackles. CVS: Regular rate and rhythm, S1 and S2 present, no murmurs or gallops appreciated. ABDOMEN: Soft, non-tender. No signs of distention. No rebound no guarding, and no masses palpated. Bowel sounds are normal. EXTREMITIES: FROM in all major joints, no edema, no cyanosis or clubbing. NEURO: Alert and oriented x 3. No acute neurological deficits. Pt follows commands. SKIN: Dry and warm Triage Information Reviewed: Yes Vital Signs: Initial Vital Signs Temp 99.0 F 11/09/18 14:50 Pulse 108 11/09/18 14:50 Resp 18 11/09/18 14:50 BP 151/96 11/09/18 14:50 Pulse Ox 99 11/09/18 14:50 Course/Dx - Course Course Of Treatment: 48 y/o male presents to the urgent care c/o of being stress lately. This morning when he woke up he felt very tired and he called in to work and his boss told him he needs to have documentation for a sick day before a Holiday. He has noticed his BP has been high lately. However he hasn't been able to see his PCP. Pt denies OSEGUERA, dizziness, fever, SOB, chest pain, abdominal pain, N/V/ D. Hx obtained. Pt is hemodynamically stable, A&OX3, PE: WNL. Pt w/ elevated BP : 156/96 and HR 108. Pt states states feeling well w/o any dizziness SOB, chest pain, OSEGUERA or visual changes. Pt advised to decrease salt in diet, monitor BP and f/u with PCP for further management. Pt given note for work. Pt educated on HTN, D/c instructions explained.Pt left clinic hemodynamically stable and ambulating. - Differential Dx - Multi-Symptom Differential Diagnoses: CVA, Other - stress, elevated BP - Diagnoses Provider Diagnosis: Elevated BP without diagnosis of hypertension Discharge ED - Sign-Out/Discharge Documenting (check all that apply): Patient Departure - D/C home All imaging exams completed and their final reports reviewed: No Studies - Discharge Plan Condition: Stable Disposition: HOME Patient Education Materials: Low-Sodium Diet (ED) Forms: *Work Release Referrals: [facility] [place] [facility] [Outside] - 3 Days Additional Instructions: 1-Your BP is elevated today. Please take your BP medications and decrease salt in your diet, monitor BP and if it continues to be elevated please f/u with your PCP for further management. If you develop chest pain, dizziness, visual disturbances, SOB, or severe OSEGUERA please go immediately to the ER for further management - Billing Disposition and Condition Condition: STABLE Disposition: Home - Attestation Statements Provider Attestation: Per institutional requirements, I have reviewed the chart, however, I was not consulted specifically or made aware of this patient by the midlevel provider. I did not personally evaluate, interact with , or disposition this patient.
== END 2018-11-09 16:03 | disposition home or self-care (01) ==
LOC: UCEAST 14:14
DX: R03.0 Elevated blood-pressure reading, without diagnosis of hypertension (principal); F17.210 Nicotine dependence, cigarettes, uncomplicated
CPT/HCPCS: 99211; G0463